=== PATIENT | female | born 1955 | race Caucasian/White ===

== ENCOUNTER 2020-12-15 12:50 | Emergency (ER) | payer MEDICARE ==
[2020-12-15] MEDS ORDERED: Sodium Chloride 0.9% 10 ML Syringe FLUSH PRN (13:04)
[2020-12-15] MEDS ORDERED: Sodium Chloride 0.9% 1,000 ML IV ONE ×2 (13:13→15:11)
[2020-12-15] MEDS ORDERED: Ondansetron 4 MG/2 ML SDV IVPUSH ONE (13:13)
--- NOTE | 2020-12-15 13:19 | EDM.PDOC ---
ED HPI GENERAL MEDICAL PROBLEM - General Stated Complaint: ER Time Seen by Provider: 12/15/20 13:04 Source of Information: Reports: Patient, Family - History of Present Illness INITIAL COMMENTS - FREE TEXT/NARRATIVE: Martinez is a 64 y/o female who has not felt well since Monday AM. She went to the [facility] yesterday with a fever, body aches, chills, headache, and nausea. She had a rapid COVID test done and it was negative. This AM her returned home to find that she was much worse more lethargic. She had gotten up when he was gone and fallen and hit her head, but she she did not remember at all what happened. He found her lying on the couch. She has not had much of an appetite, mild cough. Denies diarrhea or urinary sx. She takes no meds and is overall a healthy individual. - Related Data Allergies Allergy/AdvReac Type Severity Reaction Status Date / Time No Known Allergies Allergy Verified 12/15/20 15:10 Home Meds: Home Meds Ciprofloxacin HCl [Cipro] 500 mg PO BID #14 tablet 12/15/20 [Rx] Ondansetron [Zofran ODT] 4 mg PO Q6H PRN #12 tab.dis 12/15/20 [Rx] Review of Systems - Review of Systems Review Of Systems: See Below Constitutional: Reports: Chills, Fever, Weakness Eyes: Reports: No Symptoms Ears: Reports: No Symptoms Nose: Reports: No Symptoms Mouth/Throat: Reports: No Symptoms Respiratory: Reports: Cough (mild) Cardiovascular: Reports: No Symptoms GI/Abdominal: Reports: Decreased Appetite, Nausea Genitourinary: Reports: No Symptoms Musculoskeletal: Reports: Other (Body aches) Skin: Reports: No Symptoms Neurological: Reports: Confusion, Headache, Weakness Psychiatric: Reports: No Symptoms ED EXAM, GENERAL - Physical Exam Exam: See Below General Appearance: Alert, WD/WN (Elderly female who appears to not feel well.), No Apparent Distress Eye Exam: Bilateral Eye: PERRL Ears: Normal External Exam, Normal Canal, Hearing Grossly Normal, Normal TMs Nose: Normal Inspection, Normal Mucosa Throat/Mouth: Normal Inspection, Normal Lips, Normal Teeth, Normal Oropharynx, Normal Voice, No Airway Compromise Head: Normocephalic, Other (Note hematoma with brusing to left frontal region, no open lacerations.) Neck: Normal Inspection, Supple, Non-Tender Respiratory/Chest: No Respiratory Distress, Lungs Clear, Normal Breath Sounds, Chest Non-Tender Cardiovascular: Normal Peripheral Pulses, Regular Rate, Rhythm, No Edema, No Murmur GI/Abdominal: Normal Bowel Sounds, Soft, Non-Tender, No Mass (Female) Exam: Deferred Rectal (Female) Exam: Deferred Back Exam: Normal Inspection Extremities: Normal Inspection, Normal Range of Motion, No Pedal Edema, Normal Capillary Refill Neurological: Alert, Oriented, CN II-XII Intact, Other (Drowsy) Skin Exam: Dry, Intact, Normal Color, Increased Warmth Lymphatic: No Adenopathy #1 Interpretation EKG Date: 12/15/20 Time: 13:15 Rhythm: NSR Rate (Beats/Min): 91 [place]: Normal P-Wave: Present QRS: Normal ST-T: Normal QT: Normal Comparison: NA - No Prior EKG Course - Vital Signs Text/Narrative:: 1304 The patient was seen by the SUPERVISOR. Labs ordered. A liter of NS and Zofran 4mg IVP ordered. CT Head WO also ordered. 1520 Labs reviewed. CRP=17.4, Records Technician=1.1, Mgnazvg=602. Troponin I neg, UA pending yet. IV fluids continued. APAP 1mg po given for headache. 1550 CT results reviewed, no acute intracranial findings. Still having a headache, rates 9/10. Will given Toradol 30mg IVP, Reglan 20mg IVP, and Benadryl 50mg IVP. Will finish second liter of NS and then consider discharge to home with abx. Update given to Dr Eun Beatty on patient status. 1645 Patient feeling somewhat better. Reviewed discharge instructions with the patient. Her questions were answered. She remained stable in the ER until departing with her . - Orders/Labs/Meds Orders: Active Orders 24 hr Category Date Time Status EKG Documentation Completion [RC] STAT Care 12/15/20 13:04 Active CULTURE BLOOD [BC] Stat Lab 12/15/20 13:10 Received CULTURE BLOOD [BC] Stat Lab 12/15/20 14:05 Received CULTURE URINE [RM] Stat Lab 12/15/20 15:05 Received Sodium Chloride 0.9% [Saline Flush] Med 12/15/20 13:04 Active 10 ml FLUSH ASDIRECTED PRN Blood Culture x2 Reflex Set [OM.PC] Stat Oth 12/15/20 13:04 Ordered Saline Lock Insert [OM.PC] Stat Ot 12/15/20 13:04 Ordered Medication Orders Sodium Chloride (Sodium Chloride 0.9% 10 Ml Syringe) 10 ml FLUSH ASDIRECTED PRN PRN Reason: Keep Vein Open Labs: Laboratory Tests 12/15/20 12/15/20 12/15/20 Range/Units 13:10 13:10 13:10 WBC 9.1 (4.0-10.0) x10^3/uL RBC 4.16 (4.00-5.50) x10^6/uL Hgb 12.5 (12.0-16.0) g/dL Hct 37.2 (33.0-47.0) % MCV 89.4 (78.0-93.0) fL MCH 30.0 (26.0-32.0) pg MCHC 33.6 (32.0-36.0) g/dL RDW Coeff of Mathew 13.5 (10.0-15.0) % Plt Count 192 (130-400) x10^3/uL Neut % (Auto) 89.1 H (50.0-80.0) % Lymph % (Auto) 4.2 L (25.0-50.0) % [place] % (Auto) 6.4 (2.0-11.0) % Eos % (Auto) 0.1 (0.0-4.0) % Baso % (Auto) 0.2 (0.2-1.2) % PT 10.5 (9.9-12.5) SEC INR 0.9 L (2.0-3.5) Sodium 138 (136-145) mmol/L Potassium 4.1 (3.5-5.1) mmol/L Chloride 102 (98-107) mmol/L Carbon Dioxide 26 (21-32) mmol/L Anion Gap 14.1 (5-15) mmol/L BUN 10 (7-18) mg/dL Creatinine 1.1 H (0.55-1.02) mg/dL Est Cr Clr Drug Dosing TNP Estimated GFR (MDRD) 50 Glucose 132 H (70-99) mg/dL Lactic Acid (0.4-2.0) mmol/L Calcium 9.1 (8.5-10.1) mg/dL Corrected Calcium 9.7 (8.5-10.1) mg/dL Magnesium 1.8 (1.8-2.4) mg/dL Total Bilirubin 0.5 (0.2-1.0) mg/dL AST 17 (15-37) U/L ALT 19 (14-59) U/L Alkaline Phosphatase 56 (46-116) U/L Troponin I High Sens 8 (<=51) ng/L C-Reactive Protein 17.4 H (<=0.9) mg/dL Total Protein 7.5 (6.4-8.2) g/dL Albumin 3.3 L (3.4-5.0) g/dL Globulin 4.2 Albumin/Globulin Ratio 0.79 Amylase 82 (25-115) U/L Lipase 253 (73-393) U/L Urine Color (YELLOW) Urine Appearance (CLEAR) Urine pH (5.0-8.0) Ur Specific [place] Urine Protein (NEGATIVE) mg/dL Urine Glucose (UA) (NEGATIVE) mg/dL Urine Ketones (NEGATIVE) mg/dL Urine Occult Blood (NEGATIVE) Urine Nitrite (NEGATIVE) Urine Bilirubin (NEGATIVE) Urine Urobilinogen (0.2) EU/dL Ur Leukocyte Esterase (NEGATIVE) U Hyaline Cast (Auto) Urine RBC (NOT SEEN) /HPF Urine WBC (NOT SEEN) /HPF Ur Squamous Epith Cells (NOT SEEN) /HPF Urine Bacteria (NOT SEEN) /HPF Urine Mucus (NOT SEEN) /LPF SARS CoV-2 RNA Rapid UZMA (NEGATIVE) 12/15/20 12/15/20 12/15/20 Range/Units 13:10 13:12 15:05 WBC (4.0-10.0) x10^3/uL RBC (4.00-5.50) x10^6/uL Hgb (12.0-16.0) g/dL Hct (33.0-47.0) % MCV (78.0-93.0) fL MCH (26.0-32.0) pg MCHC (32.0-36.0) g/dL RDW Coeff of Mathew (10.0-15.0) % Plt Count (130-400) x10^3/uL Neut % (Auto) (50.0-80.0) % Lymph % (Auto) (25.0-50.0) % [place] % (Auto) (2.0-11.0) % Eos % (Auto) (0.0-4.0) % Baso % (Auto) (0.2-1.2) % PT (9.9-12.5) SEC INR (2.0-3.5) Sodium (136-145) mmol/L Potassium (3.5-5.1) mmol/L Chloride (98-107) mmol/L Carbon Dioxide (21-32) mmol/L Anion Gap (5-15) mmol/L BUN (7-18) mg/dL Creatinine (0.55-1.02) mg/dL Est Cr Clr Drug Dosing Estimated GFR (MDRD) Glucose (70-99) mg/dL Lactic Acid 1.6 (0.4-2.0) mmol/L Calcium (8.5-10.1) mg/dL Corrected Calcium (8.5-10.1) mg/dL Magnesium (1.8-2.4) mg/dL Total Bilirubin (0.2-1.0) mg/dL AST (15-37) U/L ALT (14-59) U/L Alkaline Phosphatase (46-116) U/L Troponin I High Sens (<=51) ng/L C-Reactive Protein (<=0.9) mg/dL Total Protein (6.4-8.2) g/dL Albumin (3.4-5.0) g/dL Globulin Albumin/Globulin Ratio Amylase (25-115) U/L Lipase (73-393) U/L Urine Color Yellow (YELLOW) Urine Appearance Slightly cloudy H (CLEAR) Urine pH 5.5 (5.0-8.0) Ur Specific [place] >=1.030 Urine Protein 100 H (NEGATIVE) mg/dL Urine Glucose (UA) Negative (NEGATIVE) mg/dL Urine Ketones Trace H (NEGATIVE) mg/dL Urine Occult Blood Small H (NEGATIVE) Urine Nitrite Positive H (NEGATIVE) Urine Bilirubin Negative (NEGATIVE) Urine Urobilinogen 0.2 (0.2) EU/dL Ur Leukocyte Esterase Negative (NEGATIVE) U Hyaline Cast (Auto) Rare Urine RBC 0-5 (NOT SEEN) /HPF Urine WBC 5-10 H (NOT SEEN) /HPF Ur Squamous Epith Cells Many H (NOT SEEN) /HPF Urine Bacteria Few H (NOT SEEN) /HPF Urine Mucus Rare H (NOT SEEN) /LPF SARS CoV-2 RNA Rapid UZMA Negative (NEGATIVE) Meds: Medications Generic Name Dose Route Start Last Admin Trade Name [place] PRN Reason Stop Dose Admin Sodium Chloride 10 ml 12/15/20 13:04 Sodium Chloride 0.9% 10 Ml Syringe FLUSH ASDIRECTED PRN Keep Vein Open Discontinued Medications Generic Name Dose Route Start Last Admin Trade Name [place] PRN Reason Stop Dose Admin Acetaminophen Confirm 12/15/20 15:23 12/15/20 15:14 Acetaminophen 500 Mg Tab Administered 12/15/20 15:24 1,000 mg Dose Administration 1,000 mg .ROUTE .STK-MED ONE Acetaminophen 1,000 mg 12/15/20 15:14 12/15/20 15:17 Acetaminophen 325 Mg Tab PO 12/15/20 15:15 Not Given NOW ONE Ceftriaxone Sodium 2 gm 12/15/20 13:27 12/15/20 13:38 Ceftriaxone 1 Gm Vial IVPUSH 12/15/20 13:28 2 gm STAT ONE Administration Ceftriaxone Sodium Confirm 12/15/20 13:44 Ceftriaxone 1 Gm Vial Administered 12/15/20 13:45 Dose 1 gm .ROUTE .STK-MED ONE Diphenhydramine HCl 50 mg 12/15/20 15:55 12/15/20 16:06 Diphenhydramine 50 Mg/Ml Sdv IVPUSH 12/15/20 15:56 50 mg ONETIME ONE Administration Diphenhydramine HCl Confirm 12/15/20 16:25 Diphenhydramine 50 Mg/Ml Sdv Administered 12/15/20 16:26 Dose 50 mg .ROUTE .STK-MED ONE Sodium Chloride 1,000 mls @ 999 mls/hr 12/15/20 13:13 12/15/20 13:15 Normal Saline IV 12/15/20 14:13 999 mls/hr ONETIME ONE Administration Sodium Chloride 1,000 mls @ 999 mls/hr 12/15/20 15:11 12/15/20 15:16 Normal Saline IV 12/15/20 16:11 999 mls/hr ONETIME ONE Administration Ketorolac Tromethamine 30 mg 12/15/20 15:55 12/15/20 16:05 Ketorolac 30 Mg/Ml Sdv IVPUSH 12/15/20 15:56 30 mg ONETIME ONE Administration Metoclopramide HCl 20 mg 12/15/20 15:55 12/15/20 16:08 Metoclopramide 10 Mg/2 Ml Sdv IVPUSH 12/15/20 15:56 20 mg ONETIME ONE Administration Ondansetron HCl 4 mg 12/15/20 13:13 12/15/20 13:38 Ondansetron 4 Mg/2 Ml Sdv IVPUSH 12/15/20 13:14 4 mg ONETIME ONE Administration - Radiology Interpretation Free Text/Narrative:: CT Head WO=no acute intracranial findings (See final report) Departure - Departure Time of Disposition: 16:42 Disposition: Home, Self-Care 01 Clinical Impression: UTI (urinary tract infection) Qualifiers: Urinary tract infection type: acute cystitis Hematuria presence: without hematuria Qualified Code(s): N30.00 - Acute cystitis without hematuria Concussion Qualifiers: Encounter type: initial encounter Loss of consciousness presence/duration: with LOC of unspecified duration Qualified Code(s): S06.0X9A - Concussion with loss of consciousness of unspecified duration, initial encounter - Discharge Information *PRESCRIPTION DRUG MONITORING PROGRAM REVIEWED*: Not Applicable *COPY OF PRESCRIPTION DRUG MONITORING REPORT IN PATIENT BLANQUITA: Not Applicable Prescriptions: Ciprofloxacin HCl [Cipro] 500 mg PO BID #14 tablet Ondansetron [Zofran ODT] 4 mg PO Q6H PRN #12 tab.dis PRN Reason: Nausea Instructions: Concussion, Adult, Urinary Tract Infection, Adult, [id number] Referrals: Eun Beatty DO [Primary Care Provider] - - My Orders Last 24 Hours: My Active Orders 12/15/20 13:04 EKG Documentation Completion [RC] STAT Sodium Chloride 0.9% [Saline Flush] 10 ml FLUSH ASDIRECTED PRN Blood Culture x2 Reflex Set [OM.PC] Stat Saline Lock Insert [OM.PC] Stat 12/15/20 13:10 CULTURE BLOOD [BC] Stat 12/15/20 14:05 CULTURE BLOOD [BC] Stat 12/15/20 15:05 CULTURE URINE [RM] Stat - Assessment/Plan Last 24 Hours: My Active Orders 12/15/20 13:04 EKG Documentation Completion [RC] STAT Sodium Chloride 0.9% [Saline Flush] 10 ml FLUSH ASDIRECTED PRN Blood Culture x2 Reflex Set [OM.PC] Stat Saline Lock Insert [OM.PC] Stat 12/15/20 13:10 CULTURE BLOOD [BC] Stat 12/15/20 14:05 CULTURE BLOOD [BC] Stat 12/15/20 15:05 CULTURE URINE [RM] Stat Assessment:: 1)UTI 2)Concussion with LOC Plan: -Cipro 500mg oral 2x daily for 7 days #14(Rx) -Ondanestron ODT 4mg oral every 6 hours as needed for nausea #12(Rx) -Use ibuprofen or acetaminophen as needed for pain/fever -Stay well hydrated -Rest -See the Concussion instructions, your headache may be worse due to the fall and the fact that you have a mild concussion. This will heal over time. -If you are unable to keep fluids down or symptoms seem to be getting worse, return to the ER. -Follow up with Dr Eun Beatty in 1 week for recheck
[2020-12-15] MEDS ORDERED: cefTRIAXone 1 GM Vial IVPUSH ONE (13:27)
[2020-12-15] MEDS ORDERED: cefTRIAXone 1 GM Vial ONE (13:44)
[2020-12-15 13:50] LABS: ANION GAP 14.1 mmol/L (5-15); CHLORIDE,CL 102 mmol/L (98-107); SODIUM,NA 138 mmol/L (136-145)
--- NOTE | 2020-12-15 14:27 | CT ---
[id number] CT/CT Head WO IV EXAM: NONCONTRAST HEAD CT INDICATION: FALL, LOSS OF CONSCIOUSNESS, LEFT SIDED HEAD TRAUMA. COMPARISON: January 14, 2011. DISCUSSION: Left anterior scalp hematoma/soft tissue swelling. The ventricles and sulci are normal in size and configuration. The card and white matter are normal in attenuation. No mass effect or midline shift. No acute hemorrhage or extra-axial fluid collection. No acute territorial infarct is identified. Mild right maxillary and scattered bilateral ethmoid sinus mucosal thickening. IMPRESSION: 1. No acute intracranial findings. Andres Jamil MD 12/15/20 5100 Thank you for allowing us to participate in the care of your patient.
[2020-12-15] MEDS ORDERED: Acetaminophen 325 MG Tab PO ONE (15:14)
[2020-12-15] MEDS ORDERED: Acetaminophen 500 MG Tab ONE (15:23)
[2020-12-15] MEDS ORDERED: Metoclopramide 10 MG/2 ML SDV IVPUSH ONE (15:55)
[2020-12-15] MEDS ORDERED: diphenhydrAMINE 50 MG/ML SDV IVPUSH ONE (15:55)
[2020-12-15] MEDS ORDERED: Ketorolac 30 MG/ML SDV IVPUSH ONE (15:55)
[2020-12-15] MEDS ORDERED: diphenhydrAMINE 50 MG/ML SDV ONE (16:25)
== END 2020-12-15 17:10 | disposition home or self-care (01) ==
LOC: VM.ED 12:50
DX: S06.0X9A Concussion with loss of consciousness of unspecified duration, initial encounter (principal); N30.00 Acute cystitis without hematuria; Z20.822 Contact with and (suspected) exposure to COVID-19; W22.8XXA Striking against or struck by other objects, initial encounter
CPT/HCPCS: 36415; 70450; 80053; 81001; 82150; 83605; 83690; 83735; 84484; 85025; 85610; 86140; 87040; 87086; 93005; 93010; 96374; 96375; 99284; 99285-25; A9270-GY; J0696; J1200; J1885; J2405; J2765; J7030; U0002

== ENCOUNTER 2021-07-24 09:58 | Emergency (ER) | payer MEDICARE ==
[2021-07-24] MEDS ORDERED: Ondansetron 4 MG/2 ML SDV IVPUSH ONE (10:10)
[2021-07-24 10:28] LABS: ANION GAP 13.4 mmol/L (5-15)
[2021-07-24 10:43] LABS: PTT,PARTIAL THROMBOPLSTIN TIME 24.7 SEC (25.6-32.8)
[2021-07-24] MEDS ORDERED: Morphine 4 MG/ML Syringe IVPUSH ONE (10:47)
--- NOTE | 2021-07-24 11:27 | CR ---
[id number] RAD/RAD Shoulder Right 2V Min Exam: RAD Shoulder Right 2V Min Indication:FELL DOWN STAIRS - TRAUMA CODE. SHOULDER PAIN. Comparison: No prior imaging for comparison. Discussion/Impression: Bones in normal alignment. No fracture, AVN, or erosive changes. Alex Webber MD 07/24/21 1126 Thank you for allowing us to participate in the care of your patient.
--- NOTE | 2021-07-24 11:28 | CR ---
[id number] RAD/RAD Foot Right 3V Min Exam: RAD Foot Right 3V Min Indication:FALL, RIGHT LATERAL FOOT PAIN - TRAUMA CODE. Comparison: No prior imaging for comparison. Discussion/Impression: Acute obliquely orientated slightly displaced fracture of the 5th metatarsal diaphysis. No evidence of intra-articular extension. No other acute findings. Alex Webber MD 07/24/21 1127 Thank you for allowing us to participate in the care of your patient.
--- NOTE | 2021-07-24 11:30 | CT ---
[id number] CT/CT Head WO IV EXAM: CT Head WO IV CLINICAL DATA: FELL DOWN STAIRS - TRAUMA CODE. COMPARISON STUDY: December 15, 2020. FINDINGS: Small left occipital scalp contusion. No underlying calvarial fracture. No intracranial hemorrhage, extra-axial fluid collection, mass, or acute ischemia. No hydrocephalus. Calvarium intact. Paranasal sinus mucosal thickening. Mastoid air cells are clear. IMPRESSION: No acute intracranial findings. Alex Webber MD 07/24/21 1129 Thank you for allowing us to participate in the care of your patient.
--- NOTE | 2021-07-24 11:32 | CT ---
[id number] CT/CT Cervical Spine WO IV EXAM: CT Cervical Spine WO IV INDICATION: FELL DOWN STAIRS - TRAUMA CODE. COMPARISON: None. DISCUSSION: No fracture or compression deformity. Vertebral bodies remain in normal alignment. Spondylosis. No prevertebral soft tissue edema. Scarring in both lung apices. IMPRESSION: No acute findings in the cervical spine. Alex Webber MD 07/24/21 1131 Thank you for allowing us to participate in the care of your patient.
[2021-07-24] MEDS ORDERED: Take Home: Acetaminophen/HYDROcodone 325-10 MG, 5 Tab Pack PO ONE (11:50)
--- NOTE | 2021-07-24 13:19 | EDM.PDOC ---
ED HPI GENERAL MEDICAL PROBLEM - General Chief Complaint: Head Injury Stated Complaint: FALL Time Seen by Provider: 07/24/21 09:58 Source of Information: Reports: Patient History Limitations: Reports: No Limitations - History of Present Illness INITIAL COMMENTS - FREE TEXT/NARRATIVE: Pt. presents to ER with complaints of pain post fall. Pt. states that she fell down about 12 steps in her house attempting to carry a large box down the stairs. It was a mechanical fall. She states that she fell backward, striking the back of her head. +LOC. It was an unwitnessed event, is not sure how long she was unresponsive. Pt. was transported to ER via EMS as a trauma code. Primary complaint is of R foot pain and R anterolateral shoulder pain. She complains of some headache. She denies any neck pain. No chest or back pain. No abdominal pain or pelvic pain. Denies any chest pain, shortness of breath, or lightheadedness prior to the fall. Onset: Today Onset Date: 07/24/21 Location: Reports: Head, Upper Extremity, Right, Lower Extremity, Right Quality: Reports: Ache, Throbbing Improves with: Reports: Rest Worsens with: Reports: Movement Associated Symptoms: Reports: Headaches. Denies: Confusion, Cough, Diaphoresis, Nausea/Vomiting, Seizure - Related Data Allergies Allergy/AdvReac Type Severity Reaction Status Date / Time No Known Allergies Allergy Verified 12/15/20 15:10 Home Meds: Home Meds Ciprofloxacin HCl [Cipro] 500 mg PO BID #14 tablet 12/15/20 [Rx] Ondansetron [Zofran ODT] 4 mg PO Q6H PRN #12 tab.dis 12/15/20 [Rx] Past Medical History - Past Health History Medical/Surgical History: Denies Medical/Surgical History - Infectious Disease History Infectious Disease History: Reports: None ED ROS GENERAL - Review of Systems Review Of Systems: See Below Constitutional: Reports: No Symptoms HEENT: Reports: No Symptoms Respiratory: Reports: No Symptoms Cardiovascular: Reports: No Symptoms Endocrine: Reports: No Symptoms GI/Abdominal: Reports: No Symptoms : Reports: No Symptoms Musculoskeletal: Reports: Shoulder Pain, Foot Pain Skin: Reports: No Symptoms Neurological: Reports: No Symptoms Psychiatric: Reports: No Symptoms Hematologic/Lymphatic: Reports: No Symptoms Immunologic: Reports: No Symptoms ED EXAM, HEAD INJURY - Physical Exam Exam: See Below Exam Limited By: No Limitations General Appearance: Alert, WD/WN, No Apparent Distress Head: Scalp Tenderness Nexus Criteria: Altered Level of Consciousness (+ LOC), Painful Distraction Injuries. No: Posterior, Midline Cervical Tenderness, Evidence of Intoxication, Focal Neurological Deficit Eyes: Bilateral Eye: EOMI, PERRL Ears: Normal External Exam, Normal Canal, Hearing Grossly Normal, Normal TMs Nose: Normal Inspection, Normal Mucousa, No Blood Throat/Mouth: Normal Inspection, Normal Lips, Normal Teeth, Normal Gums, Normal Oropharynx, Normal Voice, No Airway Compromise Neck: Non-Tender, Full Range of Motion, Normal Alignment, Normal Inspection Respiratory: No Respiratory Distress, Lungs Clear, Normal Breath Sounds, No Accessory Muscle Use, Chest Non-Tender Cardiovascular: Normal Peripheral Pulses, Regular Rate, Rhythm, No Edema, No JVD GI/Abdominal Exam: Normal Bowel Sounds, Soft, Non-Tender, No Distention, No Mass (Female) Exam: Deferred Rectal (Female) Exam: Deferred Back Exam: Normal Inspection, Full Range of Motion Extremities: Normal Inspection, Limited Range of Motion (Limited ROM to R shoulder.), Other (Edema to R lateral foot. Exquisitely tender to palpation. No other obvious crepitus or deformity noted. CMS intact.) - [place] Coma Score Best Eye Response (Mahesh): (4) Open Spontaneously Best Verbal Response (Mahesh): (5) Oriented Best Motor Response (Mahesh): (6) Obeys Commands Mahesh Total: 15 Course - Orders/Labs/Meds Labs: Laboratory Tests 07/24/21 07/24/21 07/24/21 Range/Units 10:06 10:06 10:06 WBC 5.4 (4.0-10.0) x10^3/uL RBC 4.17 (4.00-5.50) x10^6/uL Hgb 12.5 (12.0-16.0) g/dL Hct 37.3 (33.0-47.0) % MCV 89.4 (78.0-93.0) fL MCH 30.0 (26.0-32.0) pg MCHC 33.5 (32.0-36.0) g/dL RDW Coeff of Mathew 13.1 (10.0-15.0) % Plt Count 163 (130-400) x10^3/uL Immature Gran % (Auto) 0.00 (0.00-0.43) % Neut % (Auto) 67.2 (50.0-80.0) % Lymph % (Auto) 21.8 L (25.0-50.0) % [place] % (Auto) 7.8 (2.0-11.0) % Eos % (Auto) 3.0 (0.0-4.0) % Baso % (Auto) 0.2 (0.2-1.2) % Neut # (Auto) 3.6 (1.8-7.7) x10^3/uL Lymph # (Auto) 1.2 (1.0-4.8) x10^3/uL [place] # (Auto) 0.4 (0.0-0.8) x10^3/uL Eos # (Auto) 0.2 (0.0-0.5) x10^3/uL Baso # (Auto) 0.0 (0.0-0.2) x10^3/uL Immature Gran # (Auto) 0.00 (0.00-0.07) x10^3/uL PT 9.7 L (9.9-12.5) SEC INR 0.9 L (2.0-3.5) APTT 24.7 L (25.6-32.8) SEC Sodium 144 (136-145) mmol/L Potassium 4.4 (3.5-5.1) mmol/L Chloride 107 (98-107) mmol/L Carbon Dioxide 28 (21-32) mmol/L Anion Gap 13.4 (5-15) mmol/L BUN 17 (7-18) mg/dL Creatinine 1.0 (0.55-1.02) mg/dL Est Cr Clr Drug Dosing 55.07 mL/min Estimated GFR (MDRD) 55 Glucose 114 H (70-99) mg/dL Calcium 9.6 (8.5-10.1) mg/dL Meds: Medications Discontinued Medications Generic Name Dose Route Start Last Admin Trade Name Freq PRN Reason Stop Dose Admin Hydrocodone Bitart/Acetaminophen 2 packet 07/24/21 11:50 Take Home: Acetaminophen/Hydrocodone 325-10 Mg, 5 Tab Pack PO 07/24/21 11:51 ONETIME ONE Morphine Sulfate 4 mg 07/24/21 10:47 Morphine 4 Mg/Ml Syringe IVPUSH 07/24/21 10:48 ONETIME ONE Ondansetron HCl 4 mg 07/24/21 10:10 Ondansetron 4 Mg/2 Ml Sdv IVPUSH 07/24/21 10:11 ONETIME ONE - Radiology Interpretation Free Text/Narrative:: CT brain negative for acute pathology. CT c-spine negative for acute pathology. R shoulder plain film series obtained. No acute pathology noted. Radiographs of R foot obtained. Pt. has evidence of an obliquely oriented 5th MT fx. with minimal displacement. No other acute pathology noted. Does not involve the articular surface. Departure - Departure Time of Disposition: 12:30 Disposition: Home, Self-Care 01 Clinical Impression: Fall (on) (from) other stairs and steps, initial encounter, Closed head injury, Right shoulder strain, Fracture of 5th metatarsal - Discharge Information Instructions: Acetaminophen; Hydrocodone tablets or capsules, Shoulder Sprain, Cast or Splint Care, Adult, [id number], Metatarsal Fracture Referrals: Eun Beatty, [Primary Care Provider] - Forms: ED Department Discharge Additional Instructions: Contact [facility] on Monday AM at [phone]. I discussed your case with Dr. Beatty who will work you in to be seen in the clinic sometime on Monday. Keep splint on. No weight bearing. You can use crutches or a walker, whichever you decide to use is fine. [place] 10/325mg 1/2-1 tab every 4-6 hours as needed for pain. I would start an over the counter stool softener and increase your consumption of water, as the medication is constipating. - Problem List Review Problem List Initiated/Reviewed/Updated: Yes - Assessment/Plan Plan: Contact [facility] on Monday AM at [phone]. I discussed your case with Dr. Beatty who will work you in to be seen in the clinic sometime on Monday. Keep splint on. No weight bearing. You can use crutches or a walker, whichever you decide to use is fine. [place] 10/325mg 1/2-1 tab every 4-6 hours as needed for pain. I would start an over the counter stool softener and increase your consumption of water, as the medication is constipating.
[2021-07-24] MEDS ORDERED: Take Home: Ondansetron 4 MG Tab.DIS, 5 Tab Pack PO ONE (22:03)
== END 2021-07-24 12:45 | disposition home or self-care (01) ==
LOC: VM.ED 09:58
DX: S06.9X9A Unspecified intracranial injury with loss of consciousness of unspecified duration, initial encounter (principal); S92.351A Displaced fracture of fifth metatarsal bone, right foot, initial encounter for closed fracture; S46.911A Strain of unspecified muscle, fascia and tendon at shoulder and upper arm level, right arm, initial encounter; W10.9XXA Fall (on) (from) unspecified stairs and steps, initial encounter; Y92.009 Unspecified place in unspecified non-institutional (private) residence as the place of occurrence of the external cause
CPT/HCPCS: 70450; 72125; 73030-RT; 73630-RT; 80048; 85025; 85610; 85730; 96374; 96375; 99285-25; A9270-GY; J2270; J2405

== ENCOUNTER 2021-07-25 12:15 | Emergency (ER) | payer MEDICARE ==
[2021-07-25] MEDS ORDERED: Sodium Chloride 0.9% 10 ML Syringe FLUSH PRN (12:33)
[2021-07-25] MEDS ORDERED: Metoclopramide 10 MG/2 ML SDV IVPUSH ONE (12:36)
[2021-07-25] MEDS ORDERED: Sodium Chloride 0.9% 1,000 ML IV SCH (12:45)
[2021-07-25 13:06] LABS: ANION GAP 13.9 mmol/L (5-15); CHLORIDE,CL 105 mmol/L (98-107); SODIUM,NA 142 mmol/L (136-145)
--- NOTE | 2021-07-25 13:10 | CT ---
[id number] CT/CT Head WO IV EXAM: CT Head WO IV CLINICAL DATA: HEAD TRAUMA YESTERDAY, NOW INCREASED HEADACHE AND dizziness. COMPARISON STUDY: None FINDINGS: No intracranial hemorrhage, extra-axial fluid collection, mass, or acute ischemia. No hydrocephalus. Calvarium intact. Paranasal sinuses and mastoid air cells are clear. IMPRESSION: No acute intracranial findings. Alex Webber MD 07/25/21 7241 Thank you for allowing us to participate in the care of your patient.
[2021-07-25] MEDS ORDERED: Take Home: Nitrofurantoin Monohydrate/Macrocrystalline 100 MG, 2 Cap Pack PO ONE (15:06)
--- NOTE | 2021-07-25 16:56 | EDM.PDOC ---
ED HPI GENERAL MEDICAL PROBLEM - General Chief Complaint: General Stated Complaint: post fall Time Seen by Provider: 07/25/21 12:25 Source of Information: Reports: Patient History Limitations: Reports: No Limitations - History of Present Illness INITIAL COMMENTS - FREE TEXT/NARRATIVE: Pt. presents to ER with complaints of vertigo, lightheadedness, fatigue, headache. She was seen in ER yesterday as a trauma patient after falling backward down the stairs, striking her head, spraining her R shoulder and breaking her R 5th metatarsal. Pt. was sent home on [place] for pain control. She states that last night, she developed the above symptoms. She states that she feels diaphoretic. She was nauseated. She was given some zofran ODT for the nausea. It was unclear if symptoms were being caused by the norco of if it was secondary to closed head injury. Pt. was minimally nauseated during her stay in ER and had been given some zofran along with IV morphine for pain. Pt. states that the symptoms have gotten worse. called ER with concerns for his , and was advised to bring her ER for further evaluation and treatment. Pt. denies any numbness/tingling in extremities or face, no facial droop, no vision loss or change, no problems with speech. She is unable to ambulate as she is non-weightbearing on the R. No other focal neuro symptoms reported. She also denies any chest pain, palpitations, orthopnea, PND. No fever or chills. No cough. No diarrhea. Onset Date: 07/24/21 Location: Reports: Generalized Occipital Head Pain Score (Numeric/FACES): 6 - Related Data Allergies Allergy/AdvReac Type Severity Reaction Status Date / Time No Known Allergies Allergy Verified 12/15/20 15:10 Home Meds: Home Meds Ciprofloxacin HCl [Cipro] 500 mg PO BID #14 tablet 12/15/20 [Rx] Ondansetron [Zofran ODT] 4 mg PO Q6H PRN #12 tab.dis 12/15/20 [Rx] Past Medical History - Past Health History Medical/Surgical History: Denies Medical/Surgical History - Infectious Disease History Infectious Disease History: Reports: None Social & Family History - Tobacco Use Tobacco Use Status *Q: Never Tobacco User - Recreational Drug Use Recreational Drug Use: No ED ROS GENERAL - Review of Systems Review Of Systems: See Below Constitutional: Reports: Fatigue, Diaphoresis. Denies: Fever, Chills, Malaise HEENT: Reports: Vertigo Respiratory: Reports: No Symptoms Cardiovascular: Reports: No Symptoms Endocrine: Reports: No Symptoms GI/Abdominal: Reports: Nausea, Vomiting : Reports: No Symptoms Musculoskeletal: Reports: No Symptoms, Muscle Pain Neurological: Reports: Dizziness, Headache Psychiatric: Reports: No Symptoms Hematologic/Lymphatic: Reports: No Symptoms Immunologic: Reports: No Symptoms ED EXAM, GENERAL - Physical Exam Exam: See Below Exam Limited By: No Limitations General Appearance: Alert, WD/WN, No Apparent Distress Eye Exam: Bilateral Eye: EOMI, PERRL Throat/Mouth: Normal Inspection, Normal Lips, Normal Teeth, Normal Oropharynx, Normal Voice, No Airway Compromise Head: Normocephalic, Other (hematoma to back of head) Neck: Normal Inspection, Supple Respiratory/Chest: No Respiratory Distress, Lungs Clear, Normal Breath Sounds, No Accessory Muscle Use, Chest Non-Tender Cardiovascular: Normal Peripheral Pulses, Regular Rate, Rhythm, No JVD Peripheral Pulses: 4+: Radial (L) GI/Abdominal: Normal Bowel Sounds, Soft, Non-Tender, No Distention, No Mass (Female) Exam: Deferred Rectal (Female) Exam: Deferred Back Exam: Normal Inspection, Full Range of Motion Extremities: Other (R foot splinted. Continued but improved discomfort with manipulation of R shoulder.) Neurological: Alert, Oriented, CN II-XII Intact, Normal Cognition, Normal Reflexes, No Motor/Sensory Deficits. No: Disoriented Psychiatric: Normal Affect, Normal Mood Skin Exam: Warm, Dry, Intact, Normal Color, No Rash #1 Interpretation Rhythm: NSR Mitchell: Normal P-Wave: Present QRS: Normal ST-T: Normal QT: Normal Course - Vital Signs Last Recorded V/S: Last Vital Signs Temp 36.5 C 07/25/21 12:10 Pulse 77 07/25/21 12:10 Resp 19 07/25/21 12:10 BP 141/76 H 07/25/21 12:10 Pulse Ox 98 07/25/21 12:10 - Orders/Labs/Meds Orders: Active Orders 24 hr Category Date Time Status CULTURE URINE [RM] Stat Lab 07/25/21 14:50 Received Peripheral IV Insertion Adult [OM.PC] Routine Oth 07/25/21 12:34 Ordered Labs: Laboratory Tests 07/25/21 07/25/21 07/25/21 Range/Units 12:37 12:37 12:37 WBC 5.2 (4.0-10.0) x10^3/uL RBC 4.27 (4.00-5.50) x10^6/uL Hgb 12.8 (12.0-16.0) g/dL Hct 38.1 (33.0-47.0) % MCV 89.2 (78.0-93.0) fL MCH 30.0 (26.0-32.0) pg MCHC 33.6 (32.0-36.0) g/dL RDW Coeff of Mathew 13.1 (10.0-15.0) % Plt Count 173 (130-400) x10^3/uL Immature Gran % (Auto) 0.00 (0.00-0.43) % Neut % (Auto) 79.1 (50.0-80.0) % Lymph % (Auto) 15.5 L (25.0-50.0) % Jerome % (Auto) 5.0 (2.0-11.0) % Eos % (Auto) 0.2 (0.0-4.0) % Baso % (Auto) 0.2 (0.2-1.2) % Neut # (Auto) 4.1 (1.8-7.7) x10^3/uL Lymph # (Auto) 0.8 L (1.0-4.8) x10^3/uL Jerome # (Auto) 0.3 (0.0-0.8) x10^3/uL Eos # (Auto) 0.0 (0.0-0.5) x10^3/uL Baso # (Auto) 0.0 (0.0-0.2) x10^3/uL Immature Gran # (Auto) 0.00 (0.00-0.07) x10^3/uL PT 10.2 (9.9-12.5) SEC INR 0.9 L (2.0-3.5) Sodium 142 (136-145) mmol/L Potassium 3.9 (3.5-5.1) mmol/L Chloride 105 (98-107) mmol/L Carbon Dioxide 27 (21-32) mmol/L Anion Gap 13.9 (5-15) mmol/L BUN 13 (7-18) mg/dL Creatinine 1.1 H (0.55-1.02) mg/dL Est Cr Clr Drug Dosing TNP Estimated GFR (MDRD) 50 Glucose 128 H (70-99) mg/dL Calcium 9.7 (8.5-10.1) mg/dL Corrected Calcium 9.8 (8.5-10.1) mg/dL Phosphorus 3.0 (2.6-4.7) mg/dL Magnesium 2.0 (1.8-2.4) mg/dL Total Bilirubin 0.8 (0.2-1.0) mg/dL AST 18 (15-37) U/L ALT 23 (14-59) U/L Alkaline Phosphatase 55 (46-116) U/L Troponin I High Sens 7 (<=51) ng/L C-Reactive Protein < 0.2 (<=0.9) mg/dL Total Protein 7.0 (6.4-8.2) g/dL Albumin 3.9 (3.4-5.0) g/dL Globulin 3.1 Albumin/Globulin Ratio 1.26 Urine Color (YELLOW) Urine Appearance (CLEAR) Urine pH (5.0-8.0) Ur Specific Rembert Urine Protein (NEGATIVE) mg/dL Urine Glucose (UA) (NEGATIVE) mg/dL Urine Ketones (NEGATIVE) mg/dL Urine Occult Blood (NEGATIVE) Urine Nitrite (NEGATIVE) Urine Bilirubin (NEGATIVE) Urine Urobilinogen (0.2) EU/dL Ur Leukocyte Esterase (NEGATIVE) Urine RBC (NOT SEEN) /HPF Urine WBC (NOT SEEN) /HPF Ur Squamous Epith Cells (NOT SEEN) /HPF Urine Bacteria (NOT SEEN) /HPF Urine Mucus (NOT SEEN) /LPF 07/25/21 Range/Units 14:50 WBC (4.0-10.0) x10^3/uL RBC (4.00-5.50) x10^6/uL Hgb (12.0-16.0) g/dL Hct (33.0-47.0) % MCV (78.0-93.0) fL MCH (26.0-32.0) pg MCHC (32.0-36.0) g/dL RDW Coeff of Mathew (10.0-15.0) % Plt Count (130-400) x10^3/uL Immature Gran % (Auto) (0.00-0.43) % Neut % (Auto) (50.0-80.0) % Lymph % (Auto) (25.0-50.0) % Jerome % (Auto) (2.0-11.0) % Eos % (Auto) (0.0-4.0) % Baso % (Auto) (0.2-1.2) % Neut # (Auto) (1.8-7.7) x10^3/uL Lymph # (Auto) (1.0-4.8) x10^3/uL Jerome # (Auto) (0.0-0.8) x10^3/uL Eos # (Auto) (0.0-0.5) x10^3/uL Baso # (Auto) (0.0-0.2) x10^3/uL Immature Gran # (Auto) (0.00-0.07) x10^3/uL PT (9.9-12.5) SEC INR (2.0-3.5) Sodium (136-145) mmol/L Potassium (3.5-5.1) mmol/L Chloride (98-107) mmol/L Carbon Dioxide (21-32) mmol/L Anion Gap (5-15) mmol/L BUN (7-18) mg/dL Creatinine (0.55-1.02) mg/dL Est Cr Clr Drug Dosing Estimated GFR (MDRD) Glucose (70-99) mg/dL Calcium (8.5-10.1) mg/dL Corrected Calcium (8.5-10.1) mg/dL Phosphorus (2.6-4.7) mg/dL Magnesium (1.8-2.4) mg/dL Total Bilirubin (0.2-1.0) mg/dL AST (15-37) U/L ALT (14-59) U/L Alkaline Phosphatase (46-116) U/L Troponin I High Sens (<=51) ng/L C-Reactive Protein (<=0.9) mg/dL Total Protein (6.4-8.2) g/dL Albumin (3.4-5.0) g/dL Globulin Albumin/Globulin Ratio Urine Color Yellow (YELLOW) Urine Appearance Clear (CLEAR) Urine pH 7.0 (5.0-8.0) Ur Specific Rembert 1.015 Urine Protein Negative (NEGATIVE) mg/dL Urine Glucose (UA) Negative (NEGATIVE) mg/dL Urine Ketones Trace H (NEGATIVE) mg/dL Urine Occult Blood Negative (NEGATIVE) Urine Nitrite Negative (NEGATIVE) Urine Bilirubin Negative (NEGATIVE) Urine Urobilinogen 0.2 (0.2) EU/dL Ur Leukocyte Esterase Trace H (NEGATIVE) Urine RBC 0-5 (NOT SEEN) /HPF Urine WBC 0-5 (NOT SEEN) /HPF Ur Squamous Epith Cells Rare (NOT SEEN) /HPF Urine Bacteria Rare (NOT SEEN) /HPF Urine Mucus Rare H (NOT SEEN) /LPF Meds: Medications Discontinued Medications Generic Name Dose Route Start Last Admin Trade Name Freq PRN Reason Stop Dose Admin Sodium Chloride 1,000 mls @ 1,000 mls/hr 07/25/21 12:45 Normal Saline IV ASDIRECTED [facility] Metoclopramide HCl 5 mg 07/25/21 12:36 07/25/21 12:40 Metoclopramide 10 Mg/2 Ml Sdv IVPUSH 07/25/21 12:37 5 mg ONETIME ONE Administration Nitrofurantoin Macrocrystals 1 packet 07/25/21 15:06 07/25/21 15:25 Take Home: Nitrofurantoin Monohydrate/Macrocrystalline 100 Mg, 2 Cap Pack PO 07/25/21 15:07 1 packet ONETIME ONE Administration Sodium Chloride 10 ml 07/25/21 12:33 Sodium Chloride 0.9% 10 Ml Syringe FLUSH ASDIRECTED PRN Keep Vein Open - Radiology Interpretation Free Text/Narrative:: Repeat CT brain without contrast obtained, negative for acute pathology. - Re-Assessments/Exams Free Text/Narrative Re-Assessment/Exam: IV access established. Pt. was given a liter of normal saline and reglan for nausea/vomiting. She reported feeling much improved after receiving this. Denies any vertigo when sitting upright. No nausea or vomiting during her stay in ER. Departure - Departure Time of Disposition: 15:30 Disposition: Home, Self-Care 01 Clinical Impression: Closed head injury UTI (urinary tract infection) Qualifiers: Urinary tract infection type: acute cystitis Hematuria presence: without hematuria Qualified Code(s): N30.00 - Acute cystitis without hematuria - Discharge Information Instructions: Concussion, Adult, [id number]-Dohw, Nitrofurantoin tablets or capsules, Post-Concussion Syndrome, [id number], Urinary Tract Infection, Adult, Probiotics Referrals: Eun Beatty DO [Primary Care Provider] - Forms: ED Department Discharge Additional Instructions: Home to rest. Zofran ODT 4mg 1 tab every 6 hours as needed for nausea. I would take these on a schedule. Macrobid 100mg 1 twice daily for 6 days total Drink plenty of fluids. If you don't feel like eating for the next few days, that is OK and to be expected under the circumstances. Recheck in clinic in 10-14 days, sooner if not gradually improving. Sepsis Event Note (ED) - Evaluation Sepsis Screening Result: No Definite Risk - Focused Exam Vital Signs: Vital Signs Temp Pulse Resp BP Pulse Ox 07/25/21 12:10 36.5 C 77 19 141/76 H 98 - Problem List Review Problem List Initiated/Reviewed/Updated: Yes - My Orders Last 24 Hours: My Active Orders 07/25/21 12:34 Peripheral IV Insertion Adult [OM.PC] Routine 07/25/21 14:50 CULTURE URINE [RM] Stat - Assessment/Plan Last 24 Hours: My Active Orders 07/25/21 12:34 Peripheral IV Insertion Adult [OM.PC] Routine 07/25/21 14:50 CULTURE URINE [RM] Stat Plan: Home to rest. Zofran ODT 4mg 1 tab every 6 hours as needed for nausea. I would take these on a schedule. Macrobid 100mg 1 twice daily for 6 days total Drink plenty of fluids. If you don't feel like eating for the next few days, that is OK and to be expected under the circumstances. Recheck in clinic in 10-14 days, sooner if not gradually improving.
== END 2021-07-25 15:25 | disposition home or self-care (01) ==
LOC: VM.ED 12:49
DX: S09.90XA Unspecified injury of head, initial encounter (principal); N30.00 Acute cystitis without hematuria; W18.09XA Striking against other object with subsequent fall, initial encounter
CPT/HCPCS: 70450; 80053; 81001; 83735; 84100; 84484; 85025; 85610; 86140; 87086; 93005; 99284; A9270; J2765; 96374

== ENCOUNTER 2023-05-05 17:43 | Emergency (ER) | payer MEDICARE, OTHER ==
[2023-05-05] MEDS: Acetaminophen 500 MG Tab PO ONE (18:11)
[2023-05-05 18:13] LABS: BASOPHILS PERCENT AUTO 0.3 % (0.2-1.2); EOSINOPHILS PERCENT AUTO 0.3 % (0.0-4.0); HEMATOCRIT 36.5 % (33.0-47.0); HEMOGLOBIN 12.3 g/dL (12.0-16.0); IMMATURE GRAN ABSOLUTE AUTO 0.01 x10^3/uL (0.00-0.07); LYMPHOCYTES PERCENT AUTO 4.8 % (25.0-50.0); MEAN CORPUSCULAR HEMOGLOBIN 30.2 pg (26.0-32.0); MEAN CORPUSCULAR HGB CONC 33.7 g/dL (32.0-36.0); MEAN CORPUSCULAR VOLUME 89.7 fL (78.0-93.0); MONOCYTES ABSOLUTE AUTO 0.7 x10^3/uL (0.0-0.8); MONOCYTES PERCENT AUTO 9.4 % (2.0-11.0); NEUTROPHILS PERCENT AUTO 85.1 % (50.0-80.0); PLATELET COUNT,PLT 145 x10^3/uL (130-400); RED BLOOD CELL COUNT 4.07 x10^6/uL (4.00-5.50); WHITE BLOOD CELL COUNT,WBC 7.1 x10^3/uL (4.0-10.0)
[2023-05-05 18:33] LABS: LYMPHOCYTES ABSOLUTE AUTO 0.3 x10^3/uL (1.0-4.8)
[2023-05-05 18:34] LABS: A/G RATIO 1.17; ALANINE AMINOTRANSFERASE,ALT 21 U/L (14-59); ALBUMIN 3.4 g/dL (3.4-5.0); ALKALINE PHOSPHATASE 60 U/L (46-116); ASPARTATE AMNIOTRANSFERASE,AST 18 U/L (15-37); BILIRUBIN TOTAL 0.4 mg/dL (0.2-1.0); CALCIUM 8.9 mg/dL (8.5-10.1); CARBON DIOXIDE,CO2 28 mmol/L (21-32); CHLORIDE,CL 107 mmol/L (98-107); CREATININE 1.3 mg/dL (0.55-1.02); GLUCOSE RANDOM 158 mg/dL (70-99); POTASSIUM,K 4.1 mmol/L (3.5-5.1); PROTEIN TOTAL,TP 6.3 g/dL (6.4-8.2); SODIUM,NA 141 mmol/L (136-145)
[2023-05-05 18:35] LABS: ANION GAP 10.1 mmol/L (5-15); ESTIMATED GFR 45 mL/min (>=60)
[2023-05-05 18:58] LABS: BLOOD UREA NITROGEN,BUN 13 mg/dL (7-18)
[2023-05-05 19:08] LABS: INFLUENZA A NAA NEGATIVE (NEGATIVE); INFLUENZA B NAA NEGATIVE (NEGATIVE)
[2023-05-05 19:09] LABS: CORONAVIRUS COVID-19 NAA POSITIVE (NEGATIVE)
[2023-05-05] MEDS ORDERED: Nirmatrelvir/Ritonavir 150 MG/100 MG Dose Pack PO SCH (21:00)
== END 2023-05-05 19:36 | disposition home or self-care (01) ==
LOC: VM.ED 17:43
DX: U07.1 COVID-19 (principal); R55 Syncope and collapse; Z79.899 Other long term (current) drug therapy
CPT/HCPCS: 0240U; 36415; 71045; 80053; 84484; 85025; 93010; 99284; 99285; A9270